=== PATIENT | male | born 1975 | race Caucasian/White ===

== ENCOUNTER 2019-08-31 05:50 | Day surgery (SDC) | payer BC, SELFPAY ==
--- NOTE | 2019-08-04 04:15 | HP_ITS ---
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 Is patient in pain?: No Allergies No Known Allergies Allergy (Verified 08/04/19 15:48) Medications omeprazole 20 mg capsule,delayed release 20 mg PO DAILY PRN 08/04/19 [History Confirmed 08/04/19] prednisone 10 mg tablet PO #30 tab 08/04/19 [History Confirmed 08/04/19] PFSH Medical History (Updated 08/04/19 @ 16:11 by Lino Henderson MD) Chronic posterior anal fissure (Acute) Anal fissure (Acute) GERD (gastroesophageal reflux disease) (Acute) Hemorrhoid (Acute) Surgical History (Updated 08/04/19 @ 15:47 by Brii Sebastian) History of vasectomy (Acute ~2009) Family History (Updated 08/04/19 @ 15:48 by Brii Sebastian) Father Diabetes Hypertension Mother Breast cancer Social History (Updated 08/04/19 @ 16:15 by Lino Henderson MD) Smoking Status: Former smoker HPI HPI HPI: VENUS PHAM, is a 43 M who presents to the office today for HPI HPI Surgical H&P: Yes HPI: VENUS PHAM, is a 43 M who presents to the office today for surgical consultation regarding a chronic anal fissure but newly exacerbated perianal dermatitis. Just 4 days ago the patient was seen by Dr. Little in the absence of Dr. Oscar Henderson 30. He was prescribed a nystatin cream because of suspected perianal candidiasis. I seen him previously April 13, 2015 and at that point diagnosed a posterior anal fissure. He had had a recent anoscopy so I did not repeat that. At that point the fascia was felt to be down to muscle. Extensive discussion was had regarding treatment options. He elected to take a nonoperative approach. He denies family history of colon cancer. He has not had any weight loss. He does have to utilize a collecting pad. He does not have significant pain. He noticed a clear mucousy drainage. No typical blood. ROS General General: No weight change, appetite, fatigue, colon cancer, breast cancer or weakness HEENT HEENT: No difficulty swallowing, eye injury, eye surgery, swollen glands or hoarseness Endo Endocrine: No thyroid disease, diabetes mellitus, thyroid cancer, Hair loss, heat intolerance or cold intolerance Cardio Cardiovascular: No murmur, pacemaker, heart disease, atrial fibrillation, high blood pressure, heart attack, heart stent, palpitations, shortness of breat with exertion or chest pain Psych Psychiatric: No depression, anxiety or hearing voices Resp Respiratory: No shortness of breath, No sleep apnea, No cough, No COPD, No asthma, No emphysema, No wheezing Gastro Gastrointestinal: No abdominal pain, No nausea or vomiting, No diarrhea, No constipation, No blood in stool, Yes acid reflux, Yes hemorrhoids, No ulcers, No gallbladder problem, No black,tarry stools Main Hematologic: No blood thinners, No blood disorders, No bleeding, No anemia, No blood clots Neuro Neurologic: No weakness Exam Const General: cooperative, comfortable, no acute distress Nutritional Appearance: obese HENMT Head: normal to inspection Resp Effort & Inspection: normal respiratory effort Auscultation: clear to auscultation bilaterally Cardio Rate: regular rate Rhythm: regular rhythm Heart Sounds: no murmurs GI Palpation: soft, no hepatosplenomegaly Auscultation: normal bowel sounds Other: Significant perianal dermatitis, very red and sore in appearance, obvious posterior anal fissure with muscle on view Neuro General: alert Extrem General: no calf tenderness bilaterally Psych Affect: normal affect Assessment & Plan Problems 1. 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 The patient states that the anti-fungal ointment has improved his itching and symptoms. He has never had a colonoscopy and I definitively recommend to him that we proceed with one at this time. I have discussed with him the technique, benefits, risks, alternatives. Subsequently we discussed a posterior anal fissurectomy. We discussed plus or minus sphincterotomy. Inspection would be performed but likely at this moment I am leaning toward a fissurectomy with slight dilatation. He is aware that we would utilize fiber supplementation and mineral oil and antibiotics subsequently. He does have a vacation occurring September 25, 2019. With all of that in mind we will schedule the colonoscopy in early August. Pending any untoward findings we will proceed with a definitive fissure surgery subsequent to their vacation. I appreciate the opportunity of assisting with his surgical care Cc: Dr. Oscar Henderson, III Lino Henderson M.D., F.A.C.S. 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 There are no clinical changes since date of exam.
[2019-08-04 15:48] VITALS: BMI 36.7
[2019-08-31] VITALS (7 sets, daily range): BP systolic 97–149; BP diastolic 59–109; PULSE 68–87; RESP 16; TEMP 36.2–36.9; O2SAT 93–100; BMI 36.5
[2019-08-31] MEDS: Lactated Ringers 1,000 ML 100 ML IV (06:26)
--- NOTE | 2019-08-31 07:22 | OP.COLON_ITS ---
Patient Name: Wilber Hdz Procedure Date: 08/31/2019 6:44 AM Date of : 1975 Age: 43 Procedure: Colonoscopy Indications: Change in bowel habits Providers: Lino Henderson MD Referring MD: Oscar Henderson Iii Medicines: Midazolam 5 mg IV, Meperidine 150 mg IV, Diphenhydramine 25 mg IV Patient Profile: Last Colonoscopy: none. The patient's first colonoscopy is today. Complications: No immediate complications. Procedure: Pre-Anesthesia Assessment: - Prior to the procedure, a History and Physical was performed, and patient medications and allergies were reviewed. The patient's tolerance of previous anesthesia was also reviewed. The risks and benefits of the procedure and the sedation options and risks were discussed with the patient. All questions were answered, and informed consent was obtained. Prior Anticoagulants: The patient has taken no previous anticoagulant or antiplatelet agents. ASA Grade Assessment: II - A patient with mild systemic disease. After reviewing the risks and benefits, the patient was deemed in satisfactory condition to undergo the procedure. After I obtained informed consent, the scope was passed under direct vision. Throughout the procedure, the patient's blood pressure, pulse, and oxygen saturations were monitored continuously. The colonoscope was introduced through the anus and advanced to the cecum, identified by appendiceal orifice and ileocecal valve. The colonoscopy was performed without difficulty. The patient tolerated the procedure well. The quality of the bowel preparation was good. The ileocecal valve and the appendiceal orifice were photographed. Moderate Sedation: Moderate (conscious) sedation was personally administered by the endoscopist. The following parameters were monitored: oxygen saturation, heart rate, blood pressure, and response to care. Total physician intraservice time was 17 minutes. Scope In: 6:56:32 AM Scope Withdrawal Time 0 hours 7 minutes 7 seconds Scope Out: 7:14:30 AM Total Procedure Duration Time 0 hours 17 minutes 58 seconds Findings: The digital rectal exam findings include anal fissure. Pertinent negatives include normal prostate (size, shape, and consistency). Scattered diverticula were found in the sigmoid colon and descending colon. The exam was otherwise without abnormality. Impression: - Anal fissure found on digital rectal exam. - Diverticulosis in the sigmoid colon and in the descending colon. - The examination was otherwise normal. - No specimens collected. Recommendation: - Discharge patient to home. - Resume previous diet. - Continue present medications. - Repeat colonoscopy in 10 years for screening purposes. - Return to my office in 1 month. - Refer to surgeon for posterior fissurectomy Procedure Code(s): --- Professional --- 97332, Colonoscopy, flexible; diagnostic, including collection of specimen(s) by brushing or washing, when performed (separate procedure) 99117, 59, Moderate sedation services provided by the same physician or other qualified health customer care team coach performing the diagnostic or therapeutic service that the sedation supports, requiring the presence of an independent trained observer to assist in the monitoring of the patient's level of consciousness and physiological status; initial 15 minutes of intraservice time, patient age 5 years or older Diagnosis Code(s): --- Professional --- K60.2, Anal fissure, unspecified R19.4, Change in bowel habit K57.30, Diverticulosis of large intestine without perforation or abscess without bleeding CPT copyright 2017 [employer]. All rights reserved. The codes documented in this report are preliminary and upon fleet driver review may be revised to meet current compliance requirements. Lino Henderson MD 08/31/2019 7:21:33 AM This report has been signed electronically. Number of Addenda: 0 Note Initiated On: 08/31/2019 6:44 AM
== END 2019-08-31 08:06 | disposition home or self-care (01) ==
LOC: EN 05:51 → AC 05:53
PROVIDERS: Family Provider Family Medicine; PCP Family Medicine; Referring Provider Family Medicine; Visit Provider Surgery
PROC: 0DJD8ZZ Inspection of Lower Intestinal Tract, Via Natural or Artificial Opening Endoscopic (ICD-10-PCS; CPT 45378; principal; 2019-08-31 06:55)
DX: K60.1 Chronic anal fissure (principal); K57.30 Diverticulosis of large intestine without perforation or abscess without bleeding; K21.9 Gastro-esophageal reflux disease without esophagitis; E66.9 Obesity, unspecified; Z68.36 Body mass index [BMI] 36.0-36.9, adult; Z87.891 Personal history of nicotine dependence
CPT/HCPCS: 45378; 99152; 99153; J7120

== ENCOUNTER → 2019-09-14 08:46 | Outpatient (CLI) | payer BC, SELFPAY ==
[2019-08-31 06:07] VITALS: BMI 36.5
[2019-09-14 09:56] LABS: Absolute Lymphocyte Count 1.68 X10^3/uL (0.83-4.51); Absolute Neutrophil Count 4.8 X10^3/uL (2.0-7.7); Basophil# 0.11 X10^3/uL; Basophil% 1.4 % (0-1); Eosinophil# 0.36 X10^3/uL; Eosinophils% 4.7 % (0-5); Hematocrit 47.7 % (40-54); Hemoglobin 15.5 g/dL (13.0-16.5); Lymphocyte # 1.68 X10^3/ul (4.0); Lymphocyte % 22.1 % (19-41); Mean Corp Hgb Conc 32.5 g/dL (32-36); Mean Corpuscular Hgb 28.8 pg (27.0-32.0); Mean Corpuscular Volume 88.5 fL (80-94); Mean Platelet Vol. 9.8 fl (6.2-12.0); Monocyte% 7.9 % (0-10); NRBC Flagged by Analyzer 0 % (0-5); Neutrophil # 4.82 X10^3/uL (2.7-7.7); Neutrophil % 63.6 % (47-70); Platelet Count 343 K/mm3 (150-450); RBC Distribution Width CV 13.3 % (11.6-14.6); RBC Distribution Width SD 43.1 fl (35.1-43.9); Red Blood Count 5.39 M/mm3 (4.6-6.2); White Blood Count 7.6 K/mm3 (4.4-11.0)
[2019-09-14 10:23] LABS: AST(SGOT) 28 U/L (15-37); Alanine Aminotransfer ALT/SGPT 69 U/L (16-61); Albumin, Serum 3.6 g/dL (3.2-5.0); Alkaline Phosphatase 76 U/L (45-117); Anion Gap 5 (5-15); BUN 14 mg/dL (7-18); BUN/Creat Ratio 11.2 RATIO (10-20); Bilirubin, Direct 0.09 mg/dL (0.00-0.30); Calcium,Total 9.4 mg/dL (8.5-10.1); Chloride 108 mmol/L (98-107); Creatinine, Serum 1.25 mg/dL (0.70-1.30); EST Glomerular Filtration Rate 66 mL/min (>60); Est Glom Filt Rate - Afr Amer 80 mL/min (>60); Globulin 4.3 g/dL (2.2-4.2); Glucose 108 mg/dL (74-106); Potassium 3.7 mmol/L (3.5-5.1); Protein, Total 7.9 g/dL (6.4-8.2); Sodium Level 141 mmol/L (136-145)
[2019-09-17 03:06] LABS: QNTFERON TB Mitogen Value > 10.00 IU/mL (.); QNTFERON TB Nil Value 0.03 IU/mL (.); QNTFERON TB1+ Ag Value 0.11 IU/mL (.); QNTFERON TB2+ Ag Value 0.09 IU/mL (.)
[2019-09-17 09:22] LABS: QNTIFERON TB Positive Criteria Negative (Negative)
== END ==
PROVIDERS: PCP Family Medicine; Referring Provider Dermatology; Visit Provider Dermatology
DX: L40.0 Psoriasis vulgaris (principal); L30.4 Erythema intertrigo
CPT/HCPCS: 36415; 80048; 80076; 85025; 86480